=== PATIENT | male | born 1960 | race Caucasian/White ===

== ENCOUNTER → 2020-08-29 | Outpatient (CLI) | payer OTHER | LOC: RAD 10:22 | PROVIDERS: ATTEND Orthopaedic Surgery | DX: S62.91XA Unspecified fracture of right hand, initial encounter for closed fracture (principal); M19.031 Primary osteoarthritis, right wrist; X58.XXXA Exposure to other specified factors, initial encounter; Y93.89 Activity, other specified; Y92.89 Other specified places as the place of occurrence of the external cause; Y99.8 Other external cause status ==

== ENCOUNTER → 2020-12-09 | Outpatient (CLI) | payer OTHER | LOC: RAD 11:05 | PROVIDERS: ATTEND Orthopaedic Surgery | DX: S62.91XA Unspecified fracture of right hand, initial encounter for closed fracture (principal); M17.11 Unilateral primary osteoarthritis, right knee; X58.XXXA Exposure to other specified factors, initial encounter; Y93.89 Activity, other specified; Y92.89 Other specified places as the place of occurrence of the external cause; Y99.8 Other external cause status ==